=== PATIENT | male | born 1995 | race Asian ===

== ENCOUNTER 2022-06-02 10:00 | Emergency (ER) | payer BC ==
[~2022-06-02] VITALS: Ht 172.7 cm; Wt 80.0 kg
[2022-06-02 10:30] VITALS: BP 139/110
[2022-06-02] MEDS ORDERED: DOXYCYCLINE HYCLATE 100MG CAPSULE PO STA (10:47)
[2022-06-02] MEDS ORDERED: IBUPROFEN 600MG TABLET PO STA (10:47)
[2022-06-02] MEDS ORDERED: DOXY-326 PO (11:42)
[2022-06-02] MEDS ORDERED: ERYT1OIN6 LEFTEYE (11:42)
[2022-06-02] MEDS ORDERED: IBUP-2029 PO (11:42)
== END 2022-06-02 12:25 | disposition home or self-care (01) ==
LOC: ER 11:40
DX: H00.035 Abscess of left lower eyelid (principal)
CPT/HCPCS: 99283